=== PATIENT | male | born 1950 | race Caucasian/White ===

== ENCOUNTER 2016-10-30 09:41 | Inpatient (IN) | payer OTHER, MEDICARE ==
[~2016-10-30] VITALS: Ht 177.8 cm; Wt 97.5 kg
[~2016-10-30 09:41] MED LIST: CARV25TA PO; OXYB5TAB10 PO; PANT40TA3 PO; SIMV40TA PO; TAMS0.4C4 PO; WARF-60 PO; WELLTAB39 PO
[2016-11-06] MEDS ORDERED: WARF-58 PO (12:57)
[2016-11-06] MEDS ORDERED: NITR100C4 PO (12:58)
[2016-11-06] MEDS ORDERED: COLA100C3 PO (13:01)
[2016-11-06] MEDS ORDERED: MIRA33504 PO (13:01)
[2016-11-06] MEDS ORDERED: SENN8.6C PO (13:01)
--- NOTE | 2016-11-26 10:46 | MH ---
cc: LINDSAY CAPONE M.D., RYAN R. M.D. GEIS, CAROLYN M.D. TRAFICANTE, DALE R. M.D. KHANNA, ROHIT K. M.D. SORATHIA, ABDUL J. M.D. DATE OF ADMISSION: 11/27/2016 ADMITTING DIAGNOSIS Cervical stenosis. HISTORY OF PRESENT ILLNESS This is a 66-year-old male who was seen in our office for evaluation of a spinal cord injury. He states on May 06 he was hiking and had an accident and sustained a cervical spinal cord injury. He was essentially quadriplegic per his with some limited movement in his upper extremities. He was found to have cervical spinal stenosis. He states he was seen by neurosurgery and advised to wear a cervical collar and follow-up with neurosurgery when he was home. He states that he had a prolonged rehab course secondary to complications with a DVT in his right calf and was placed on Coumadin and then developed intestinal bleed and needed repair for this. He also required his gallbladder to be removed. He states he spent 85 days in rehab. He has improved from his initial presentation and now can walk with a walker. He has numbness in his hands. He has tingling in his calves down to his feet which improves as the day goes on. He has a neurogenic bladder and has a Brink catheter in place and sees urology who is managing this. Urology is requesting that his cervical spine be addressed prior to placement of a suprapubic catheter. The patient has also been seen by Dr. Cota from hematology who recommended that he can proceed with cervical spine surgery and stop the Coumadin prior to surgery with perioperative Lovenox coverage. We also discussed the option of an IVC filter placement but the patient would like to avoid this. Dr. Cota feels that the risk for DVT progression is low in this case. The patient has also had multiple urinary tract infections which have been treated by his urologist, Dr. Kaplan. His last urinalysis was read as negative and the patient has continued to take his antibiotic to prevent recurrent infection. PAST MEDICAL HISTORY 1. Sleep apnea; he uses a CPAP machine. 2. Hyperlipidemia. 3. Hypertension. 4. Recurrent urinary tract infections. 5. Spinal cord injury. 6. Coronary artery disease with a history of coronary stents five years ago. 7. Elbow surgery on May 10, 2016. 8. Knee surgery in May 10, 2016. 9. Femur surgery May 10, 2016. 10.Gallbladder removed May 20, 2016. 11.Repair of an arterial bleed in the small intestine. 12.Histor of DVT. 13.History of depression. 14.Gastroesophageal reflux disease. MEDICATIONS Current medications: 1. Coumadin 6 mg daily. This was stopped one week prior to surgical intervention and the patient was placed on Lovenox 60 mg b.i.d. The Lovenox was stopped 48 hours prior to surgical intervention. 2. Carvedilol 25 mg b.i.d. 3. Bupropion 300 mg daily. 4. Flomax 0.4 mg daily. 5. Simvastatin 40 mg q.h.s. 6. Pantoprazole 40 mg daily. 7. Oxybutynin 5 mg daily. ALLERGIES He has no known drug allergies. FAMILY HISTORY His mother is at [id number] of a heart attack. His father is at [id number]. His sister is alive at [id number] in good health. He had another sister decreased, she was still born. SOCIAL HISTORY He is a retired [employer]. He is . He has one child. He does not smoke. He used to smoke and quit in 1984. He drinks 0-2 drinks of alcohol per month. REVIEW OF SYSTEMS CONSTITUTIONAL: Denies any fever or chills. EYES, EARS, NOSE AND THROAT: No pharyngitis, exudates or bloody drainage from his nose. CARDIOVASCULAR: Denies chest pain or palpitations. RESPIRATORY: No cough or shortness of breath. GENITOURINARY: No dysuria. Positive for urinary frequency. MUSCULOSKELETAL: Positive for joint pain. INTEGUMENTARY: No rashes or pruritus. NEUROLOGIC: No difficulty with speech or memory. GASTROINTESTINAL: No abdominal pain or diarrhea. PSYCHIATRIC: No anxiety. Positive for depression, controlled with medication. ENDOCRINE: No polyuria or polydipsia. HEMATOLOGIC: Positive for bruising tendencies related to his Coumadin use. PHYSICAL EXAMINATION HEAD: Normocephalic, atraumatic. NECK: Supple. No carotid bruits heard on auscultation. LUNGS: Clear to auscultation bilaterally. HEART: Regular rate and rhythm. Normal S1, S2. ABDOMEN: Soft, nontender. Positive bowel sounds. SKIN: No cyanosis or erythema. MUSCULOSKELETAL: He is 4/5 strength in the lower extremities. He has 4-/5 strength in the deltoid, biceps, triceps, and 3/5 strength in the hand intrinsics. He is in a wheelchair for exam but he is able to walk with a walker. NEUROLOGIC: Awake, alert and oriented. Cranial nerves II through XII appear grossly intact. Speech is fluent. Comprehension is good. Sensation in the upper extremities is decreased and in the lower extremities also. DATA REVIEW We reviewed an MRI of the cervical spine from August 22, 2016 which reveals a C5-C6 level increased T2 weighted intensity signal in the spinal cord reflective of a spinal cord injury and contusion. He has multilevel cervical stenosis from a disc osteophyte complex from C3 through C7 with the C3-C4 spinal canal reduced down to 6 mm. The spinal canal at the C4-C5 level is down to 8 mm. The spinal canal at the C5-C6 level is down to 7 mm. The canal space at C6-C7 is down to 7 mm. IMPRESSION This is a 66-year-old male who suffered a cervical spinal cord injury with quadriplegia initially after falling while he was hiking in [place] in April 2016. He was found to have a cervical spinal cord injury and multilevel stenosis, although neurosurgery recommend he follow-up with a local neurosurgeon in [place] for cervical decompression. He has had a complicated course developing a right lower extremity DVT. He was on Coumadin therapy and he sustained a subsequent GI bleed requiring embolization and extensive rehabilitation. His strength has continued to improve, although he is still very limited with decrease strength in his upper and lower extremities and he ambulates with a walker. He also has a long-term Brink catheter in place with recurrent UTIs and he is unable to self-catheterize himself and urology is contemplating a suprapubic catheter placement but would like to have the cervical stenosis addressed prior to proceeding with this. PLAN We have discussed with the patient. I recommended posterior C3-C7 decompressive laminectomy with lateral mass fixation and fusion. The procedure was explained using spine models in the office and all his questions were answered to his satisfaction and also his . No guarantees were given to the results. He understands that he has a spinal cord injury. We have discussed the risks involved with surgery which include but are not limited to bleeding, infection, muscle weakness, voice hoarseness, difficulty swallowing, heart attack, stroke, blood clots, non-fusion, scar tissue formation, as well as other complications, especially related to his current morbidities including DVT, pulmonary embolus, sepsis from his recurrent UTIs, including cardiopulmonary risk. The patient states that he understands these risks and he is requesting that we proceed and was therefore scheduled accordingly. Dictated by: Peyman Navas PA-C MD SAVANNAH Olivo/BOB /9:18 AM /10:03 AM
[2016-11-26] MEDS ORDERED: LACTCAP8 PO (10:56)
[2016-11-26] MEDS ORDERED: MULT-135 PO (10:56)
[2016-11-27] MEDS ORDERED: INSULIN HUMAN REGULAR 1,000 UNITS/10 ML VIAL SQ PRN (06:15)
[2016-11-27] MEDS ORDERED: SODIUM CHLORID 0.9% 500 ML IV SCH (06:15)
[2016-11-27] MEDS ORDERED: LACTATED RINGER'S 1000 ML IV SCH (06:15)
[2016-11-27] MEDS ORDERED: METOPROLOL TARTRATE 25 MG TAB PO PRN (06:15)
[2016-11-27] MEDS ORDERED: SODIUM CHLOR 0.9% 1000 ML INJ 1,000 ML IV SCH (06:15)
[2016-11-27] MEDS ORDERED: VANCOMYCIN 1,000 MG/NS 250 ML IV SCH ×2 (06:15)
[2016-11-27] MEDS ORDERED: DIPH1TAB36 PO (06:41)
[2016-11-27 06:49] VITALS: BP 118/75; PULSE 60; RESP 20; TEMP 97.6; O2SAT 99
[2016-11-27] MEDS ORDERED: BUPIVACAINE/EPINEPHRINE 0.5% 50 ML VIAL ONE (07:09)
[2016-11-27] MEDS ORDERED: GELFOAM SIZE 100 ONE (07:10)
--- NOTE | 2016-11-27 07:26 | RADRPT ---
EXAM DATE/TIME: 11/27/2016 06:20 [facility] COMPARISON: No previous studies available for comparison. INDICATIONS : Evaluate for pneumonia, pneumothorax or communicable disease. Pre-op chest for cervical spine surgery MEDICAL HISTORY : None. SURGICAL HISTORY : cervical spine ENCOUNTER: Initial ACUITY: 1 day PAIN SCORE: 0/10 LOCATION: Bilateral chest FINDINGS: The heart is normal. The pulmonary vascular pattern is normal. The lungs are clear. Degenerative cheatham ges and scoliosis of the thoracic spine are noted. CONCLUSION: 1. No acute cardiopulmonary disease. 2. Degenerative changes and scoliosis of the thoracic spine. Dale Padilla MD on November 27, 2016 at 7:24 Board Certified Radiologist. This report was verified electronically.
[2016-11-27] MEDS ORDERED: FAMOTIDINE 20 MG/2 ML VIAL ONE (07:47)
[2016-11-27] MEDS ORDERED: MIDAZOLAM HCL 2 MG/2 ML VIAL ONE (07:47)
[2016-11-27] MEDS ORDERED: KETAMINE HCL 500 MG/5 ML VIAL ONE (08:01)
[2016-11-27] MEDS: THROMBIN (TOPICAL) 5,000 UNIT VIAL ONE ×2 (09:30→10:31)
[2016-11-27] MEDS: VANCOMYCIN HCL 1000 MG VIAL ONE ×2 (09:30→11:32)
[2016-11-27] MEDS ORDERED: LEVOFLOXACIN 500 MG PREMIX INJ 100 ML IV ONE (09:46)
[2016-11-27] MEDS ORDERED: PHENYLEPH/NS 1000 MCG/10 ML SYR IV ONE (10:52)
[2016-11-27] MEDS ORDERED: LACTATED RINGER'S 1000 ML INJ 4,000 ML IV ONE (10:52)
[2016-11-27] MEDS ORDERED: ONDANSETRON HCL 4 MG/2 ML VIAL IV PUSH ONE (10:52)
[2016-11-27] MEDS ORDERED: ePHEDrine/NS 25 MG/5 ML SYR IV ONE (10:52)
[2016-11-27] MEDS ORDERED: PROPOFOL 200 MG/20 ML AMP IV ONE (10:52)
[2016-11-27] MEDS ORDERED: ACETAMINOPHEN 1000 MG/100 ML VIAL IV ONE (11:53)
[2016-11-27] MEDS ORDERED: BISACODYL 10 MG SUPP PR PRN (12:45)
[2016-11-27] MEDS ORDERED: CALCIUM GLUCONATE INJ 1 GM in SODIUM CHLORIDE 0.9% INJ 100 ML IV PRN (12:45)
[2016-11-27] MEDS ORDERED: ACETAMINOPHEN 325 MG TAB PO PRN (12:45)
[2016-11-27] MEDS ORDERED: PROMETHAZINE INJ 25 MG/ML VIAL IM PRN (12:45)
[2016-11-27] MEDS ORDERED: RESP: ALBUTEROL 2.5 MG/3 ML NEB (PRN) NEB (12:45)
[2016-11-27] MEDS ORDERED: POTASSIUM CHLOR 20 MEQ PREMIX 100 ML IV PRN (12:45)
[2016-11-27] MEDS ORDERED: DIPHENHYDRAMINE ACETAMINOPHEN PO PRN (12:45)
[2016-11-27] MEDS ORDERED: ZOLPIDEM TARTRATE 5 MG TAB PO PRN (12:45)
[2016-11-27] MEDS ORDERED: SODIUM CHLORIDE 0.9% FLUSH 5 ML FLUSH IVF PRN (12:45)
[2016-11-27] MEDS ORDERED: ONDANSETRON HCL 4 MG/2 ML VIAL IV PRN (12:45)
[2016-11-27] MEDS ORDERED: ALUMINUM/MAGNESIUM/SIMETH 30 ML CUP PO PRN (12:45)
[2016-11-27] MEDS ORDERED: MAGNESIUM HYDROXIDE SUSP 30 ML CUP PO PRN (12:45)
[2016-11-27] MEDS ORDERED: ACETAMINOPHEN/HYDROcodone 325 MG/10 MG TAB PO PRN (12:45)
[2016-11-27] MEDS ORDERED: MAGNESIUM SULFATE INJ 2 GM in SODIUM CHLORIDE 0.9% INJ 100 ML IV PRN (12:45)
[2016-11-27] MEDS ORDERED: MENTHOL LOZENGE SUCK-ON PRN (12:45)
[2016-11-27] MEDS ORDERED: MORPHINE SULFATE 4 MG/ML INJ IV PRN (12:45)
[2016-11-27] MEDS ORDERED: cloNIDine HCL 0.1 MG TAB PO PRN (12:45)
[2016-11-27] MEDS ORDERED: DO NOT ADM ANY ANTICOAGULANT DRUGS XX PRN (12:52)
--- NOTE | 2016-11-27 12:52 | PD.OP ---
cc: Lily Lund MD; Milagros Hammer MD; Jarek Redd MD; Suzie Cota MD; Carlos Kaplan MD Operative Report Date of Surgery: Nov 27, 2016 Preoperative Diagnosis: Cervical C3-7 spinal stenosis with cord compression and history of spinal cord injury with quadriparesis Postoperative Diagnosis: Same Procedure: Posterolateral cervical C3, C4, C5, C6 and C7 fusion; C3-7 decompressive laminectomy; C3-7 lateral mass segmental fixation; microsurgical technique Anesthesia: Gen. endotracheal by Kim Koehler Surgeon: Blade Allen M.D. Brokerage Branch Manager(s): Soni Cronin Operation and Findings: Following administration of general endotracheal anesthesia with the neck maintained in neutral position in a [place] J collar, patient had a Brink catheter in place with sequential compression devices on the left leg given history of right leg DVT. A gram of vancomycin, 500 mg of Levaquin and 10 mg of Decadron was administered intravenously. He was then turned on a prone position on a Christian table and the head secured in a horseshoe headrest and all pressure points adequately padded. Posterior cervical region was then shaved and prepped with Betadine solution and ChloraPrep. Sterile draping undertaken along with Ioban and a midline incision extending from the C3 to the C7 was then made after infiltrating the skin was 0.5% Marcaine with epinephrine solution. Intraoperative fluoroscopy used for level confirmation. Retractors were used for exposure after the fascia incised and the muscular attachments to the spinous process and lamina along with the facets detached from C3 to C7 levels bilaterally. Further dissection was undertaken using microtechnique with microscope magnification. I drilled out the lamina at the junction of the facets from C4 to C6 levels bilaterally and an en bloc laminectomy undertaken for decompression the spinal canal. The inferior half of the C3 lamina and the superior half of the C7 lamina along with the hypertrophied ligamentum flavum was also resected with a Kerrison spinal canal decompressed further. The ligamentum flavum were also resected with Kerrisons. The facets on both sides decorticated with a curette. Subsequently lateral mass fixation undertaken with the [employer] screws with entry point of the midportion of the facet on both sides from C3 to C7 levels. The screw trajectory was lateral and superiorly guided with fluoroscopy also. Screws were then connected with a natividad and locked in place with caps. The construct appeared to be secure this point in AP and lateral fossae confirmed good placement and alignment. The decorticated facets were then packed from C3 to C7 levels with the local autograft morselized bone along with the demineralized bone matrix for posterolateral fusion. The area was then copiously irrigated with antibody solution laminectomy edges and hemostasis achieved with bone wax along with Gelfoam and thrombin. Retractors removed and the muscle and fascia using 2-0 Vicryl interrupted sutures and 3-0 Vicryl subcuticular stitch also placed in an interrupted fashion and final skin closure was with cristiane. A sterile dressing was applied and the neck immobilized in a [place] J collar. He was then turned in supine position and extubated and taken to recovery room. There were no intraoperative complications and all sponge and needle count was correct at the end the procedure. Estimated blood loss about 300 cc. Patient did undergo intraoperative neurologic monitoring which remained stable throughout surgery. Blade Allen MD Nov 27, 2016 12:52
[2016-11-27 12:53] VITALS: O2SAT 99
[2016-11-27] MEDS ORDERED: *morphine SULFATE 8 MG/ML PERIprocedure ONLY ONE ×2 (13:05→13:37)
[2016-11-27] MEDS ORDERED: fentaNYL CITRATE 250 MCG/5 ML AMP ONE (13:08)
[2016-11-27 14:04] LABS: AUTOMATED NEUTROPHIL # 2.6 TH/MM3 (1.8-7.7); BASOPHIL % 0.6 % (0.0-2.0); EOSINOPHIL % 0.7 % (0.0-4.0); HEMATOCRIT 32.8 % (39.0-51.0); HEMO FLAGS DIFF FINAL; LYMPH % 14.9 % (9.0-44.0); LYMPHOCYTE # 0.5 TH/MM3 (1.0-4.8); MEAN CELL VOLUME 88.8 FL (80.0-100.0); MEAN CORPUSCULAR HEMOGLOBIN 30.4 PG (27.0-34.0); MEAN CORPUSCULAR HGB CONC 34.3 % (32.0-36.0); MONO % 2.4 % (0.0-8.0); NEUT % 81.4 % (16.0-70.0); PLATELET COUNT 100 TH/MM3 (150-450); RED BLOOD COUNT 3.69 MIL/MM3 (4.50-5.90); RED CELL DISTRIBUTION WIDTH 14.4 % (11.6-17.2); WHITE BLOOD COUNT 3.2 TH/MM3 (4.0-11.0)
[2016-11-27 14:14] VITALS: O2SAT 97
[2016-11-27] MEDS: NS + KCL 20 MEQ INJ 1,000 ML IV SCH ×2 (14:20→22:01)
[2016-11-27 14:30] LABS: BICARBONATE 26.3 MEQ/L (21.0-32.0); POTASSIUM 4.1 MEQ/L (3.5-5.1)
--- NOTE | 2016-11-27 14:39 | RADRPT ---
EXAM DATE/TIME: 11/27/2016 08:46 [facility] COMPARISON: No previous studies available for comparison. INDICATIONS: Posterior cervical fusion C3 to C7 with screws and rods., MEDICAL HISTORY: Hypertension. Hypercholesterolemia. Myocardial infarction. CAD. Sleep SURGICAL HISTORY: Coronary artery stent. Elbow, knee, femur surgery. ENCOUNTER: Initial ACUITY: 2 days PAIN SCORE: Non-responsive. LOCATION: Cervical spine. FINDINGS/ CONCLUSION: Five views submitted for interpretation. There are bilateral posterior rods from C3 to C7. There ar e three pedicular screws on the right, four on the left. No visible complication. There appears to be good alignment. Wayne Gordon MD on November 27, 2016 at 14:31 Board Certified Radiologist. This report was verified electronically.
[2016-11-27] MEDS ORDERED: ceFAZolin INJ 1,000 MG VIAL ONE (15:01)
[2016-11-27] MEDS ORDERED: SODIUM CHLORIDE 0.9% INJ 100 ML ONE (15:02)
[2016-11-27] MEDS ORDERED: *ENALAPRILAT 1.25 MG/ML VIAL PERIprocedural Use ONLY ONE (15:27)
[2016-11-27] MEDS: DEXAMETHASONE SOD PHOS 4 MG/ML VIAL IV SCH ×2 (15:35→22:01)
[2016-11-27 16:15] VITALS: BP 155/88; PULSE 69; RESP 17; TEMP 96.5; O2SAT 99
[2016-11-27] MEDS: ACETAMINOPHEN/HYDROcodone 325 MG/10 MG TAB PO PRN (18:07)
[2016-11-27 20:00] VITALS: BP 156/80; PULSE 89; RESP 18; TEMP 96.7; O2SAT 98
[2016-11-27] MEDS: SODIUM CHLORIDE 0.9% FLUSH 5 ML FLUSH IVF SCH (21:00)
--- NOTE | 2016-11-27 21:19 | PD.CONS ---
HPI Service [facility] Consult Requested By Dr Allen Reason for Consult Medical management Primary Care Physician Blade Allen MD Diagnoses: History of Present Illness This is a 66-year-old male with extensive past medical history as detailed below who was seen by Dr. for spinal cord injury. The patient reportedly had a an accident while he was hiking and sustained a cervical spinal cord injury. The patient became quadriplegic with limited movement in his upper extremities. The patient was then diagnosed with cervical spinal stenosis. He was seen by neurosurgery and advised to wear a cervical collar and follow-up with neurosurgery. Patient states he had a prolonged rehabilitation course secondary to complications with a DVT in his right calf and was placed on Coumadin and then developed intestinal bleed which had repair for this. Patient also had cholecystectomy. The patient states that he spent 85 days in rehabilitation. Patient states he has had some improvement from his initial presentation since he cannot walk with a walker but complained of numbness in his hands. She also complained of some tingling in his feet which in improved test the day goes on. Patient also has neurogenic bladder and has a Brink catheter in place and is followed by urology. Urology is requesting that his cervical spine [place] prior to placement of a suprapubic catheter. Patient has been followed by Dr. Baez from hematology for his DVT who recommended that the patient could proceed with a cervical spine surgery and recommended to stop the Coumadin prior to surgery with some perioperative Lovenox coverage. As per records the optional patient lives in [place] was also discussed but the patient would like to avoid this. As per records Dr. Courtney. [place] that the risk of DVT progression is low in this case. Patient also has had some multiple histories of UTIs which have been treated by his urologist Dr. douglas. He is on antibiotic to prevent recurrent infection. The patient is status post elective postlaminectomy of the posterior C3 to 7 laminectomies, fusion, symmetric bilateral mouth fixation, jake and autograft with normal monitoring. Review of Systems Other As per history of present illness, other systems reviewed by me and negative. Past Family Social History Allergies: Coded Allergies: *MDRO Multi-Drug Resistant Organism (Verified Adverse Reaction, Unknown, ) MRSA (urine) - 07/20/16, 08/17/16 Past Medical History 1. Obstructive sleep apnea, uses CPAP machine 2. Hyperlipidemia. 3. Hypertension. 4. Spinal cord injury. 5. Recurrent urinary tract infections. 6. CAD status post stents placement 5 years ago. 7. History of DVT. 8. History of depression 9. GERD Past Surgical History 1. Coronary stents 5 years ago 2. Elbow surgery on 05/10/16. 3. Knee surgery in May 10 4. Femur surgery May 10 5. Gallbladder removed 05/20/16 6. Repair of arterial bleed in the small intestine. Reported Medications 1. Coumadin 6 minutes by mouth daily. Stopped one week prior to surgical intervention and the patient placed on Lovenox 60 minutes twice a day. Lovenox discontinued 48 hours prior to surgical intervention. 2. Carvedilol 25 mg by mouth twice a day 3. Bupropion 300 mg by mouth daily 4. Flomax 0.4 minutes by mouth daily. 5. Simvastatin 40 mg daily at bedtime. 6. Pantoprazole 40 mg by mouth daily. 7. Oxybutynin 5 mg by mouth daily Active Ordered Medications Current Medications Medications (Trade) Dose Ordered Sig/Shukri Route Start Time Stop Time Status Last Admin (Wellbutrin Sr) 150 mg BID PO 11/27/16 21:00 (Coreg) 25 mg BID PO 11/27/16 21:00 (Lactinex) 1 tab DAILYAC PO 11/28/16 08:00 (Theragran) 1 tab DAILY PO 11/28/16 09:00 (Macrobid) 100 mg DAILY PO 11/28/16 09:00 (Ditropan) 5 mg DAILY PO 11/28/16 09:00 (Protonix) 40 mg DAILY PO 11/28/16 09:00 (Miralax) 17 gm DAILY PO 11/28/16 09:00 (Flomax) 0.4 mg HS PO 11/27/16 21:00 (Senokot) 8.6 mg HS PO 11/27/16 21:00 Pravastatin Sodium 80 mg 80 mg HS PO 11/27/16 21:00 (NS + KCl 20 Meq Inj) 1,000 ml @ 100 mls/hr Q10H IV 11/27/16 12:39 11/28/16 12:38 11/27/16 14:20 (NS Flush) 2 ml UNSCH PRN IVF 11/27/16 12:45 IV Flush 2 ml 2 ml BID IVF 11/27/16 21:00 (Ancef Inj/NS Inj) 100 ml @ 200 mls/hr Q8H IV 11/27/16 16:00 11/28/16 08:29 (Lovenox Inj) 30 mg Q12H SQ 11/28/16 09:00 (Dulcolax Supp) 10 mg DAILY PRN VT 11/27/16 12:45 (Colace) 100 mg BID PO 11/27/16 21:00 (Milk Of Magnesia Liq) 30 ml DAILY PRN PO 11/27/16 12:45 (Mag-Al Plus Susp Liq) 30 ml Q6H PRN PO 11/27/16 12:45 (Zofran Inj) 4 mg Q6H PRN IV 11/27/16 12:45 Promethazine HCl 25 mg 25 mg Q4H PRN IM 11/27/16 12:45 Calcium Gluconate 1 gm/Sodium Chloride 110 ml @ 110 mls/hr UNSCH PRN IV 11/27/16 12:45 Potassium Chloride 100 ml @ 50 mls/hr UNSCH PRN IV 11/27/16 12:45 (Magnesium Sulfate Inj/NS Inj) 104 ml @ 100 mls/hr UNSCH PRN IV 11/27/16 12:45 ([place] 10-325 Mg) 1 tab Q4H PRN PO 11/27/16 12:45 11/27/16 18:07 ([place] 10-325 Mg) 2 tab Q4H PRN PO 11/27/16 12:45 (Morphine Inj) 4 mg Q2H PRN IV 11/27/16 12:45 (Flexeril) 10 mg Q8H PRN PO 11/27/16 12:45 (Decadron Inj) 4 mg Q6H IV 11/27/16 16:00 11/28/16 10:01 11/27/16 15:35 (Catapres) 0.1 mg Q6H PRN PO 11/27/16 12:45 (Tylenol) 650 mg Q4H PRN PO 11/27/16 12:45 (Hollister Lore) 1 lozenge UNSCH PRN SUCK-ON 11/27/16 12:45 (Ambien) 5 mg HS PRN PO 11/27/16 12:45 Miscellaneous Information ALL NURSING DEPARTME... [facility] PRN XX 11/27/16 12:52 11/28/16 12:51 Family History Patient's mother is of 89 years old for heart attack. The patient's father is at 67 years old. His sister is alive at 77 years old in good health. Patient had another sister but was a stillborn. Social History The patient is a former smoker. He quit in 1984. He drinks 2 drinks of alcohol per month.. The patient is . Has one child. 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 Physical Exam Vital Signs Vital Signs Date Time Temp Pulse Resp B/P Pulse Ox O2 Delivery O2 Flow Rate FiO2 11/27/16 16:15 96.5 69 17 155/88 99 11/27/16 15:30 62 16 154/87 96 Nasal Cannula 2 11/27/16 15:15 62 16 150/90 97 Nasal Cannula 2 11/27/16 15:00 66 16 163/90 97 Nasal Cannula 2 11/27/16 14:45 58 16 150/89 98 Nasal Cannula 2 11/27/16 14:30 54 16 157/90 97 Nasal Cannula 2 11/27/16 14:15 54 16 174/98 97 Nasal Cannula 2 11/27/16 14:14 97 Mask 6 11/27/16 14:00 50 12 164/90 99 Mechanical Ventilator 60 11/27/16 13:45 50 12 169/96 99 Mechanical Ventilator 60 11/27/16 13:30 54 10 138/71 99 Mechanical Ventilator 60 11/27/16 13:15 52 8 128/78 99 Mechanical Ventilator 60 11/27/16 13:00 50 137/77 99 Mechanical Ventilator 60 11/27/16 12:53 99 60 11/27/16 12:50 96.0 52 125/73 99 Mechanical Ventilator 60 11/27/16 06:49 97.6 60 20 118/75 99 Physical Exam GENERAL: This is a well-nourished, well-developed patient, in no apparent distress. SKIN: No rashes, ecchymoses or lesions. Cool and dry. HEAD: Atraumatic. Normocephalic. No temporal or scalp tenderness. EYES: Pupils equal round and reactive. Extraocular motions intact. No scleral icterus. No injection or drainage. ENT: Nose without bleeding, purulent drainage or septal hematoma. Throat without erythema, tonsillar hypertrophy or exudate. Uvula midline. Airway patent. NECK: Trachea midline. No JVD or lymphadenopathy. Supple, nontender, no meningeal signs. CARDIOVASCULAR: Regular rate and rhythm without murmurs, gallops, or rubs. RESPIRATORY: Clear to auscultation. Breath sounds equal bilaterally. No wheezes , rales, or rhonchi. GASTROINTESTINAL: Abdomen soft, non-tender, nondistended. No hepato-splenomegaly , or palpable masses. No guarding. MUSCULOSKELETAL: Extremities without clubbing, cyanosis, or edema. No joint tenderness, effusion, or edema noted. No calf tenderness. Negative Homans sign bilaterally. NEUROLOGICAL: Awake and alert. Cranial nerves II through XII intact. Motor and sensory grossly within normal limits. Five out of 5 muscle strength in all muscle groups. Normal speech. Laboratory Laboratory Tests Test 11/27/16 11/27/16 06:40 13:40 Blood Type A POSITIVE Antibody Screen NEGATIVE Blood Bank Comment White Blood Count 3.2 Red Blood Count 3.69 Hemoglobin 11.2 Hematocrit 32.8 Mean Corpuscular Volume 88.8 Mean Corpuscular Hemoglobin 30.4 Mean Corpuscular Hemoglobin 34.3 Concent Red Cell Distribution Width 14.4 Platelet Count 100 Mean Platelet Volume 7.7 Neutrophils (%) (Auto) 81.4 Lymphocytes (%) (Auto) 14.9 Monocytes (%) (Auto) 2.4 Eosinophils (%) (Auto) 0.7 Basophils (%) (Auto) 0.6 Neutrophils # (Auto) 2.6 Lymphocytes # (Auto) 0.5 Monocytes # (Auto) 0.1 Eosinophils # (Auto) 0.0 Basophils # (Auto) 0.0 CBC Comment DIFF FINAL Differential Comment Sodium Level 141 Potassium Level 4.1 Chloride Level 104 Carbon Dioxide Level 26.3 Anion Gap 11 Blood Urea Nitrogen 13 Creatinine 0.71 Estimat Glomerular Filtration 111 Rate Random Glucose 118 Calcium Level 8.2 Result Diagram: 11/27/16 1340 11/27/16 1340 Imaging Last Impressions Chest X-Ray 11/27/16 0614 Signed Impressions: Service Date/Time: Sunday, November 27, 2016 06:20 - CONCLUSION: 1. No acute cardiopulmonary disease. 2. Degenerative changes and scoliosis of the thoracic spine. Dale Padilla MD Cervical Spine X-Ray 11/27/16 0000 Signed Impressions: Service Date/Time: Sunday, November 27, 2016 08:46 - CONCLUSION: Five views submitted for interpretation. There are bilateral posterior rods from C3 to C7. There are three pedicular screws on the right, four on the left. No visible complication. There appears to be good alignment. Wayne Gordon MD Reviewed by me. Assessment and Plan Problem List: (1) Degenerative cervical spinal stenosis ICD Code: M48.02 Status: Acute Plan: Status post posterior C3-7 laminectomies, fusion, segmental rectal mass fixation. Management as per neurosurgery. Patient currently on pain control with [place] and morphine IV. On dexamethasone IV. (2) Sleep apnea ICD Code: G47.30 Status: Acute Plan: Continue CPAP. (3) Hypertension ICD Code: I10 Status: Acute Plan: Continue home antihypertensive medications. The patient currently on carvedilol, clonidine when necessary for systolic blood pressure more than 170 (4) Hyperlipidemia ICD Code: E78.5 Status: Acute Plan: Continue statin (5) BPH (benign prostatic hypertrophy) ICD Code: N40.0 Status: Acute Plan: Continue tamsulosin (6) H/O deep venous thrombosis ICD Code: Z86.718 Status: Acute Plan: Patient currently on Lovenox 30 mg subcutaneous every 12 hours. (7) Depression ICD Code: F32.9 Status: Acute Plan: Seems stable, continue bupropion Assessment and Plan GI prophylaxis: PPI DVT prophylaxis: SCDs, and Lovenox therapeutic dose. Problem Qualifiers (1) Hypertension: Qualified Code: I10 - Essential hypertension (2) Depression: Qualified Code: F32.9 - Depression, unspecified depression type Willian Shetty MD Nov 27, 2016 21:18
[2016-11-27] MEDS: DOCUSATE SODIUM 100 MG CAP PO SCH (21:41)
[2016-11-27] MEDS: buPROPion HCL 150 MG SUSTAINED RELEASE TAB PO SCH (21:42)
[2016-11-27] MEDS: PRAVASTATIN SOD 80 MG TAB PO SCH (21:42)
[2016-11-27] MEDS: SENNOSIDES 8.6 MG TAB PO SCH (21:42)
[2016-11-27] MEDS: CARVEDILOL 12.5 MG TAB PO SCH (21:42)
[2016-11-27] MEDS: TAMSULOSIN HCL 0.4 MG CAP PO SCH (21:42)
[2016-11-28] VITALS (7 sets, daily range): BP systolic 136–145; BP diastolic 70–79; PULSE 75–93; RESP 16–18; TEMP 97.1–98; O2SAT 93–98
[2016-11-28] MEDS: CYCLOBENZAPRINE HCL 10 MG TAB PO PRN ×2 (00:16→12:23)
[2016-11-28] MEDS: ACETAMINOPHEN/HYDROcodone 325 MG/10 MG TAB PO PRN (00:17)
[2016-11-28] MEDS: DEXAMETHASONE SOD PHOS 4 MG/ML VIAL IV SCH ×2 (04:59→09:04)
[2016-11-28 07:06] LABS: MEAN CELL VOLUME 88.9 FL (80.0-100.0); MEAN CORPUSCULAR HEMOGLOBIN 30.8 PG (27.0-34.0); MEAN CORPUSCULAR HGB CONC 34.7 % (32.0-36.0); PLATELET COUNT 136 TH/MM3 (150-450); RED CELL DISTRIBUTION WIDTH 14.3 % (11.6-17.2); REVIEW FLAG FINAL
[2016-11-28] MEDS ORDERED: DOCUSATE SODIUM 100 MG CAP PO SCH (09:00)
[2016-11-28] MEDS: NITROFURANTOIN MONOHYD MACROCR 100 MG CAP PO SCH (09:01)
[2016-11-28] MEDS: MULTIVITAMIN TAB PO SCH (09:02)
[2016-11-28] MEDS: CARVEDILOL 12.5 MG TAB PO SCH ×2 (09:02→20:22)
[2016-11-28] MEDS: PANTOPRAZOLE SOD 40 MG DELAYED RELEASE TAB PO SCH (09:02)
[2016-11-28] MEDS: OXYBUTYNIN CHLORIDE 5 MG TAB PO SCH (09:03)
[2016-11-28] MEDS: buPROPion HCL 150 MG SUSTAINED RELEASE TAB PO SCH ×2 (09:03→20:22)
[2016-11-28] MEDS: DOCUSATE SODIUM 100 MG CAP PO SCH ×2 (09:03→20:22)
[2016-11-28] MEDS: LACTOBACILLUS ACIDOPHILUS TAB PO SCH (09:03)
[2016-11-28] MEDS: ENOXAPARIN SODIUM 30 MG/0.3 ML SYRINGE SQ SCH ×2 (09:04→20:23)
[2016-11-28] MEDS: NS + KCL 20 MEQ INJ 1,000 ML IV SCH (09:13)
[2016-11-28] MEDS: POLYETHYLENE GLYCOL 17 GM PKG PO SCH (09:13)
[2016-11-28] MEDS: SODIUM CHLORIDE 0.9% FLUSH 5 ML FLUSH IVF SCH ×2 (09:22→20:21)
--- NOTE | 2016-11-28 09:43 | HHI.NSPN ---
(Peyman Navas) History Chief Complaint: Incisional discomfort s/p multilevel cervical decompression and fusion (Peyman Navas) Interval History 11/28/16: Pt underwent C3, C4, C5, C6, and C7 decompressive laminectomy with posterolateral fusion and lateral mass fixation on 11/27/16. He states he overall is feeling well. He has neck pain and states the [place] didn't seem to help much. He has had Percocet in the past and did good with this. He denies any radiculopathy in UEs. Paresthesias in UEs and body improved. (Peyman Navas) Review of Systems General: Negative for: fever, chills, insomnia Respiratory: Negative for: shortness of breath, cough, sputum Cardiovascular: Negative for: chest pain Gastrointestinal: Negative for: nausea, vomitting, diarrhea, constipation ( Peyman Navas) Exam Results Vital Signs Date Time Temp Pulse Resp B/P Pulse Ox O2 Delivery O2 Flow Rate FiO2 11/28/16 08:00 97.7 82 16 144/73 98 11/27/16 15:30 Nasal Cannula 2 11/27/16 14:00 60 Intake and Output 11/27/16 11/27/16 11/28/16 08:00 16:00 00:00 Intake Total 100 ml 720 ml Output Total 225 ml 600 ml Balance -125 ml 120 ml (Peyman Navas) Physical Examination Resp: CTA bilaterally Heart: NSR no murmurs Abd: Soft positive bs Skin: Incision clean and dry. No signs of infection. New bandage placed. Muscle: Moves all 4 extremities with improving strength. Neuro: Pt awake and alert. Follows commands well. Speech clear and appropriate. (Peyman Navas) Lab, Micro, Other Results Laboratory Tests Test 11/27/16 11/28/16 13:40 06:35 White Blood Count 3.2 TH/MM3 8.0 TH/MM3 Red Blood Count 3.69 MIL/MM3 3.60 MIL/MM3 Hemoglobin 11.2 GM/DL 11.1 GM/DL Hematocrit 32.8 % 32.0 % Mean Corpuscular Volume 88.8 FL 88.9 FL Mean Corpuscular Hemoglobin 30.4 PG 30.8 PG Mean Corpuscular Hemoglobin 34.3 % 34.7 % Concent Red Cell Distribution Width 14.4 % 14.3 % Platelet Count 100 TH/MM3 136 TH/MM3 Mean Platelet Volume 7.7 FL 8.1 FL Neutrophils (%) (Auto) 81.4 % Lymphocytes (%) (Auto) 14.9 % Monocytes (%) (Auto) 2.4 % Eosinophils (%) (Auto) 0.7 % Basophils (%) (Auto) 0.6 % Neutrophils # (Auto) 2.6 TH/MM3 Lymphocytes # (Auto) 0.5 TH/MM3 Monocytes # (Auto) 0.1 TH/MM3 Eosinophils # (Auto) 0.0 TH/MM3 Basophils # (Auto) 0.0 TH/MM3 CBC Comment DIFF FINAL Differential Comment Sodium Level 141 MEQ/L Potassium Level 4.1 MEQ/L Chloride Level 104 MEQ/L Carbon Dioxide Level 26.3 MEQ/L Anion Gap 11 MEQ/L Blood Urea Nitrogen 13 MG/DL Creatinine 0.71 MG/DL Estimat Glomerular Filtration 111 ML/MIN Rate Random Glucose 118 MG/DL Calcium Level 8.2 MG/DL 11/27/16 11/27/16 11/28/16 15:00 23:00 07:00 Intake Total 100 ml 720 ml 360 ml Output Total 225 ml 600 ml 800 ml Balance -125 ml 120 ml -440 ml Intake Oral 720 ml 360 ml IV Total 100 ml Output Urine Total 225 ml 600 ml 800 ml # Bowel Movements 0 0 (Peyman Navas) Medical Decision Making Impression and Plan A: 66 y/o M s/p C3, C4, C5, C6 and C7 decompressive laminectomy with posterolateral fusion and C3-C7 lateral mass fixation P: Change to Percocet PT Rehab placement when pain controlled in next 1-2 days. (Peyman Navas) Attending Statement The exam, history, and the medical decision-making described in the above note were completed with the assistance of the mid-level provider. I reviewed and agree with the findings presented. I attest that I had a [id number] encounter with the patient on the same day, and personally performed and documented my assessment and findings in the medical record. Doing well postop day #1 with reported improvement in neurologic symptoms. Patient and his are very pleased with the early results and his progress. He will need acute inpatient rehabilitation. (Blade Allen MD) Peyman Navas Nov 28, 2016 09:43 Blade Allen MD Nov 28, 2016 18:30
[2016-11-28] MEDS: oxyCODONE/ACETAMINOPHEN 10 MG/325 MG TAB PO PRN ×2 (12:23→17:42)
--- NOTE | 2016-11-28 16:41 | HHI.PR ---
Subjective Remarks very motivated with physical therapy states back discomfort and tingling of hands much improved since surgery have a very supportive at bedside Objective Vitals Vital Signs Date Time Temp Pulse Resp B/P Pulse Ox O2 Delivery O2 Flow Rate FiO2 11/28/16 15:43 97.8 93 17 139/74 93 11/28/16 12:00 97.8 75 17 145/70 96 11/28/16 11:44 96 11/28/16 08:00 97.7 82 16 144/73 98 11/28/16 04:18 97.1 88 17 145/75 95 11/28/16 00:25 98.0 87 18 136/79 96 11/27/16 20:00 96.7 89 18 156/80 98 I/O 11/27/16 11/27/16 11/27/16 11/28/16 11/28/16 11/28/16 07:00 15:00 23:00 07:00 15:00 23:00 Intake Total 100 ml 720 ml 360 ml 240 ml Output Total 225 ml 600 ml 800 ml 1150 ml Balance -125 ml 120 ml -440 ml -910 ml Intake Oral 720 ml 360 ml 240 ml IV Total 100 ml Output Urine Total 225 ml 600 ml 800 ml 1150 ml # Bowel Movements 0 0 0 Result Diagram: 11/28/16 0635 11/27/16 1340 Imaging Last Impressions Chest X-Ray 11/27/16 0614 Signed Impressions: Service Date/Time: Sunday, November 27, 2016 06:20 - CONCLUSION: 1. No acute cardiopulmonary disease. 2. Degenerative changes and scoliosis of the thoracic spine. Dale Padilla MD Cervical Spine X-Ray 11/27/16 0000 Signed Impressions: Service Date/Time: Sunday, November 27, 2016 08:46 - CONCLUSION: Five views submitted for interpretation. There are bilateral posterior rods from C3 to C7. There are three pedicular screws on the right, four on the left. No visible complication. There appears to be good alignment. Wayne Gordon MD Objective Remarks awake and alert, oriented x 3, speech clear crvical collar in place lungs clear regular rhythm abdomen soft, nontender urias in place extremities no edema, right calf slightly bigger than- no calf tenderness grossly sensory intact ambulated with a walker from bed to chair Procedures 11/27- 3- C7 laminectomy Urinary Catheter: Yes Assessment to: Continue [place] insert reason: Surgical/Invasive Proced Date of Insertion: Nov 27, 2016 A/P Problem List: (1) Degenerative cervical spinal stenosis ICD Code: M48.02 Status: Acute (2) Sleep apnea ICD Code: G47.30 Status: Acute (3) Hypertension ICD Code: I10 Status: Acute (4) Hyperlipidemia ICD Code: E78.5 Status: Acute (5) BPH (benign prostatic hypertrophy) ICD Code: N40.0 Status: Acute (6) H/O deep venous thrombosis ICD Code: Z86.718 Status: Acute (7) Depression ICD Code: F32.9 Status: Acute Assessment and Plan (1) Degenerative cervical spinal stenosis ICD Code: M48.02 Status: Acute Plan: Status post posterior C3-7 laminectomies, fusion, segmental rectal mass fixation. 11/27 Management as per neurosurgery. Patient currently on pain control with [place] and morphine IV. (2) Sleep apnea ICD Code: G47.30 Status: Acute Plan: Continue CPAP.at hs (3) Hypertension ICD Code: I10 Status: Acute Plan: Continue home antihypertensive medications. The patient currently on carvedilol, clonidine when necessary for systolic blood pressure more than 170 (4) Hyperlipidemia ICD Code: E78.5 Status: Acute Plan: Continue statin (5) BPH (benign prostatic hypertrophy) ICD Code: N40.0 Status: Acute Plan: Continue tamsulosin, currently urias in place post op (6) H/O deep venous thrombosis, right ICD Code: Z86.718 Status: chronic Plan: Patient currently on Lovenox 30 mg subcutaneous every 12 hours. (7) Depression ICD Code: F32.9 Status: Acute Plan: Seems stable, continue bupropion Assessment and Plan GI prophylaxis: PPI DVT prophylaxis: SCDs, and Lovenox Problem Qualifiers (1) Hypertension: Qualified Code: I10 - Essential hypertension (2) Depression: Qualified Code: F32.9 - Depression, unspecified depression type Dylan Rocha MD Nov 28, 2016 16:41
[2016-11-28] MEDS: TAMSULOSIN HCL 0.4 MG CAP PO SCH (20:22)
[2016-11-28] MEDS: PRAVASTATIN SOD 80 MG TAB PO SCH (20:22)
[2016-11-28] MEDS: SENNOSIDES 8.6 MG TAB PO SCH (20:22)
[2016-11-29 00:28] VITALS: BP 133/67; PULSE 87; RESP 17; TEMP 97.6; O2SAT 95
[2016-11-29] MEDS: oxyCODONE/ACETAMINOPHEN 10 MG/325 MG TAB PO PRN ×3 (03:15→13:30)
[2016-11-29 04:12] VITALS: BP 138/76; PULSE 65; RESP 17; TEMP 97.6; O2SAT 96
[2016-11-29 08:00] VITALS: BP 140/78; PULSE 71; RESP 18; TEMP 97.4; O2SAT 95
[2016-11-29 08:20] VITALS: O2SAT 92
[2016-11-29] MEDS: MULTIVITAMIN TAB PO SCH (08:52)
[2016-11-29] MEDS: POLYETHYLENE GLYCOL 17 GM PKG PO SCH (08:52)
[2016-11-29] MEDS: DOCUSATE SODIUM 100 MG CAP PO SCH (08:52)
[2016-11-29] MEDS: LACTOBACILLUS ACIDOPHILUS TAB PO SCH (08:52)
[2016-11-29] MEDS: SODIUM CHLORIDE 0.9% FLUSH 5 ML FLUSH IVF SCH (08:52)
[2016-11-29] MEDS: ENOXAPARIN SODIUM 30 MG/0.3 ML SYRINGE SQ SCH (08:52)
[2016-11-29] MEDS: NITROFURANTOIN MONOHYD MACROCR 100 MG CAP PO SCH (08:53)
[2016-11-29] MEDS: buPROPion HCL 150 MG SUSTAINED RELEASE TAB PO SCH (08:53)
[2016-11-29] MEDS: PANTOPRAZOLE SOD 40 MG DELAYED RELEASE TAB PO SCH (08:53)
[2016-11-29] MEDS: CARVEDILOL 12.5 MG TAB PO SCH (08:53)
[2016-11-29] MEDS: OXYBUTYNIN CHLORIDE 5 MG TAB PO SCH (08:53)
--- NOTE | 2016-11-29 08:59 | HHI.NSPN ---
(Peyman Navas) History Chief Complaint: Incisional discomfort s/p multilevel cervical decompression and fusion (Peyman Navas) Interval History 11/28/16: Pt underwent C3, C4, C5, C6, and C7 decompressive laminectomy with posterolateral fusion and lateral mass fixation on 11/27/16. He states he overall is feeling well. He has neck pain and states the [employer] didn't seem to help much. He has had Percocet in the past and did good with this. He denies any radiculopathy in UEs. Paresthesias in UEs and body improved. 11/29/16: Pt awake and alert. States doing very well. Neck pain controlled with pain medication. No radiculopathy in UEs. Paresthesias in hands less and also less in LEs. Pt ambulated short distance with rolling walker. (Peyman Navas) Review of Systems General: Negative for: fever, chills, insomnia Respiratory: Negative for: shortness of breath, cough, sputum Cardiovascular: Negative for: chest pain Gastrointestinal: Negative for: nausea, vomitting, diarrhea, constipation ( Peyman Naavs) Exam Results Vital Signs Date Time Temp Pulse Resp B/P Pulse Ox O2 Delivery O2 Flow Rate FiO2 11/29/16 04:12 97.6 65 17 138/76 96 11/28/16 18:00 21 11/27/16 15:30 Nasal Cannula 2 Intake and Output 11/28/16 11/28/16 11/29/16 08:00 16:00 00:00 Intake Total 360 ml 240 ml 840 ml Output Total 800 ml 1150 ml 1850 ml Balance -440 ml -910 ml -1010 ml (Peyman Navas) Physical Examination Resp: CTA bilaterally Heart: NSR no murmurs Abd: Soft positive bs Skin: Incision clean and dry. No signs of infection. New bandage placed by RN this morning. Muscle: Moves all 4 extremities with improving strength 4/5 strength in UEs and LEs. Neuro: Pt awake and alert. Follows commands well. Speech clear and appropriate. (Peyman Navas) Lab, Micro, Other Results 11/28/16 11/28/16 11/29/16 15:00 23:00 07:00 Intake Total 240 ml 840 ml 360 ml Output Total 1150 ml 1850 ml 750 ml Balance -910 ml -1010 ml -390 ml Intake Oral 240 ml 840 ml 360 ml Output Urine Total 1150 ml 1850 ml 750 ml # Bowel Movements 0 0 0 (Peyman Navas) Medical Decision Making Impression and Plan A: 66 y/o M s/p C3, C4, C5, C6 and C7 decompressive laminectomy with posterolateral fusion and C3-C7 lateral mass fixation P: Continue with PT Rehab placement when bed available. (Peyman Navas) Attending Statement The exam, history, and the medical decision-making described in the above note were completed with the assistance of the mid-level provider. I reviewed and agree with the findings presented. I attest that I had a [id number] encounter with the patient on the same day, and personally performed and documented my assessment and findings in the medical record. (Blade Allen MD) Peyman Navas Nov 29, 2016 08:59 Blade Allen MD Nov 29, 2016 16:20
[2016-11-29] MEDS ORDERED: CYCL1TAB29 PO (09:13)
[2016-11-29] MEDS ORDERED: MILKSUS PO (09:13)
[2016-11-29] MEDS ORDERED: OXYC1TAB36 PO (09:13)
[2016-11-29] MEDS ORDERED: ENOX30P SQ (09:14)
--- NOTE | 2016-11-29 11:12 | HHI.PR ---
Subjective Remarks doing very well motivated with therapy tingling improved looking forward to going to rehab Objective Vitals Vital Signs Date Time Temp Pulse Resp B/P Pulse Ox O2 Delivery O2 Flow Rate FiO2 11/29/16 08:20 92 21 11/29/16 08:00 97.4 71 18 140/78 95 11/29/16 04:12 97.6 65 17 138/76 96 11/29/16 00:28 97.6 87 17 133/67 95 11/28/16 20:24 97.9 86 18 136/72 95 11/28/16 18:00 21 11/28/16 15:43 97.8 93 17 139/74 93 11/28/16 12:00 97.8 75 17 145/70 96 11/28/16 11:44 96 I/O 11/28/16 11/28/16 11/28/16 11/29/16 11/29/16 11/29/16 07:00 15:00 23:00 07:00 15:00 23:00 Intake Total 360 ml 240 ml 840 ml 360 ml Output Total 800 ml 1150 ml 1850 ml 750 ml Balance -440 ml -910 ml -1010 ml -390 ml Intake Oral 360 ml 240 ml 840 ml 360 ml Output Urine Total 800 ml 1150 ml 1850 ml 750 ml # Bowel Movements 0 0 0 0 Result Diagram: 11/28/16 0635 11/27/16 1340 Imaging Last Impressions Chest X-Ray 11/27/16 0614 Signed Impressions: Service Date/Time: Sunday, November 27, 2016 06:20 - CONCLUSION: 1. No acute cardiopulmonary disease. 2. Degenerative changes and scoliosis of the thoracic spine. Dale Padilla MD Cervical Spine X-Ray 11/27/16 0000 Signed Impressions: Service Date/Time: Sunday, November 27, 2016 08:46 - CONCLUSION: Five views submitted for interpretation. There are bilateral posterior rods from C3 to C7. There are three pedicular screws on the right, four on the left. No visible complication. There appears to be good alignment. Wayne Gordon MD Objective Remarks awake and alert, oriented x 3, speech clear cervical collar in place lungs clear regular rhythm abdomen soft, nontender urias in place extremities no edema, no calf tenderness grossly sensory intact Procedures 1/31- 3- C7 laminectomy Urinary Catheter: Yes Urias insert reason: Surgical/Invasive Proced Date of Insertion: Nov 27, 2016 A/P Problem List: (1) Degenerative cervical spinal stenosis ICD Code: M48.02 Status: Acute (2) Sleep apnea ICD Code: G47.30 Status: Acute (3) Hypertension ICD Code: I10 Status: Acute (4) Hyperlipidemia ICD Code: E78.5 Status: Acute (5) BPH (benign prostatic hypertrophy) ICD Code: N40.0 Status: Acute (6) H/O deep venous thrombosis ICD Code: Z86.718 Status: Acute (7) Depression ICD Code: F32.9 Status: Acute Assessment and Plan (1) Degenerative cervical spinal stenosis ICD Code: M48.02 Status: Acute Plan: Status post posterior C3-7 laminectomies, fusion, segmental rectal mass fixation. 11/27 Management as per neurosurgery. Patient currently on pain control with [place] (2) Sleep apnea ICD Code: G47.30 Status: Acute Plan: Continue CPAP.at (3) Hypertension ICD Code: I10 Status: Acute Plan: Continue home antihypertensive medications. The patient currently on carvedilol, (4) Hyperlipidemia ICD Code: E78.5 Status: Acute Plan: Continue statin (5) BPH (benign prostatic hypertrophy) ICD Code: N40.0 Status: Acute Plan: Continue tamsulosin, currently urias in place post op- keep urias - going with it to [place] (6) H/O deep venous thrombosis, right ICD Code: Z86.718 Status: chronic Plan: Patient currently on Lovenox 30 mg subcutaneous every 12 hours. (7) Depression ICD Code: F32.9 Status: Acute Plan: Seems stable, continue bupropion Assessment and Plan GI prophylaxis: PPI DVT prophylaxis: SCDs, and Lovenox Plan- [facility] rehab if bed available Problem Qualifiers (1) Hypertension: Qualified Code: I10 - Essential hypertension (2) Depression: Qualified Code: F32.9 - Depression, unspecified depression type Dylan Rocha MD Nov 29, 2016 11:12
[2016-11-29 12:00] VITALS: BP 138/80; PULSE 70; RESP 18; TEMP 97.2; O2SAT 95
[2016-12-05] MEDS ORDERED: COLA100C3 PO (13:19)
[2016-12-05] MEDS ORDERED: OXYC-395 PO (13:19)
[2016-12-05] MEDS ORDERED: CYCL1TAB29 PO (13:19)
[2017-04-13] MEDS ORDERED: BACT800T5 PO (19:13)
[2017-04-13] MEDS ORDERED: CEPH-460 PO (19:13)
== END 2016-11-29 14:35 | DRG 471 ==
LOC: HSDI 11-27 05:34 → N06B 11-27 16:06
PROVIDERS: ADMIT Neurological Surgery; ATTEND Neurological Surgery
PROC: 0RG2071 Fusion of 2 or more Cervical Vertebral Joints with Autologous Tissue Substitute, Posterior Approach, Posterior Column, Open Approach (ICD-10-PCS; principal; 2016-11-27 08:03)
DX: M48.02 Spinal stenosis, cervical region (principal); G82.50 Quadriplegia, unspecified; S14.159S Other incomplete lesion at unspecified level of cervical spinal cord, sequela; N31.9 Neuromuscular dysfunction of bladder, unspecified; W19.XXXS Unspecified fall, sequela; Z86.718 Personal history of other venous thrombosis and embolism; Z79.01 Long term (current) use of anticoagulants; Z87.440 Personal history of urinary (tract) infections; E78.5 Hyperlipidemia, unspecified; I10 Essential (primary) hypertension; I25.10 Atherosclerotic heart disease of native coronary artery without angina pectoris; Z95.5 Presence of coronary angioplasty implant and graft; F32.9 Major depressive disorder, single episode, unspecified; K21.9 Gastro-esophageal reflux disease without esophagitis; G47.33 Obstructive sleep apnea (adult) (pediatric); N40.0 Benign prostatic hyperplasia without lower urinary tract symptoms; Z87.891 Personal history of nicotine dependence
CPT/HCPCS: 71010; 72040; 76000; 80048; 85025; 85027; 86850; 86900; 86901; 94150; C1713; J0131; J0690; J1100; J1650; J1956; J2250; J2270; J2370; J2405; J3010; J3370; J3480; J7050; J7120; L0150

== ENCOUNTER → 2016-11-06 | Outpatient (CLI) | payer OTHER, MEDICARE ==
[~2016-11-06] MED LIST changes: +BACT800T5 PO; +CEPH-460 PO; +COLA100C3 PO; +CYCL1TAB29 PO; +DIPH1TAB36 PO; +ENOX30P SQ; +ENOX60P SQ; +LACTCAP8 PO; +MILKSUS PO; +MIRA33504 PO; +MULT-135 PO; +NITR100C4 PO; +OXYC-395 PO; +OXYC1TAB36 PO; +SENN8.6C PO; +WARF-58 PO
[2016-11-06 12:49] LABS: AUTOMATED NEUTROPHIL # 3.3 TH/MM3 (1.8-7.7); BASOPHIL % 0.9 % (0.0-2.0); EOSINOPHIL # 0.1 TH/MM3 (0-0.4); EOSINOPHIL % 1.9 % (0.0-4.0); HEMATOCRIT 36.9 % (39.0-51.0); HEMO FLAGS DIFF FINAL; LYMPH % 20.4 % (9.0-44.0); MEAN CELL VOLUME 87.6 FL (80.0-100.0); MEAN CORPUSCULAR HEMOGLOBIN 30.4 PG (27.0-34.0); MEAN CORPUSCULAR HGB CONC 34.7 % (32.0-36.0); MONO % 9.3 % (0.0-8.0); NEUT % 67.5 % (16.0-70.0); PLATELET COUNT 180 TH/MM3 (150-450); RED BLOOD COUNT 4.22 MIL/MM3 (4.50-5.90); RED CELL DISTRIBUTION WIDTH 14.7 % (11.6-17.2); WHITE BLOOD COUNT 4.9 TH/MM3 (4.0-11.0)
[2016-11-06 13:05] LABS: ALT (GPT) 26 U/L (12-78); ANION GAP 6 MEQ/L (5-15); AST (GOT) 12 U/L (15-37); BICARBONATE 27.4 MEQ/L (21.0-32.0); BLOOD UREA NITROGEN 16 MG/DL (7-18); CHLORIDE 104 MEQ/L (98-107); GLOMERULAR FILTRATION RATE 76 ML/MIN (>89); GLUCOSE,FASTING 110 MG/DL (74-99); POTASSIUM 4.3 MEQ/L (3.5-5.1); SODIUM (NA) 137 MEQ/L (136-145)
[2016-11-06 13:08] LABS: ALKALINE PHOSPHATASE 117 U/L (45-117); TOTAL BILIRUBIN ADULT 0.6 MG/DL (0.2-1.0)
[2016-11-06 13:18] LABS: APTT (PATIENT) 26.1 SEC (24.3-30.1); INTERNATIONAL NORMALIZED RATIO 1.3 RATIO; PROTHROMBIN TIME - PATIENT 14.8 SEC (9.8-11.6)
--- NOTE | 2016-11-06 14:00 | RADRPT ---
EXAM DATE/TIME: 11/06/2016 13:40 [facility] COMPARISON: No previous studies available for comparison. INDICATIONS : Evaluate for pneumonia, pneumothorax, or communicable disease. Pre op for cervical spine surgery. MEDICAL HISTORY : Hypertension. Hypercholesterolemia. Myocardial infarction. CAD. Sleep apnea. GERD. DVT. SURGICAL HISTORY : Coronary artery stent. Elbow, knee, femur surgery. ENCOUNTER: Initial ACUITY: 1 day PAIN SCORE: 0/10 LOCATION: chest FINDINGS: PA and lateral views of the chest demonstrate the lungs to be symmetrically aerated without evidence of mass, infiltrate or effusion. Heart size is normal. There is a stent overlying the region of the L AD. Surgical clips within the region of the GE junction.. Osseous structures are intact. CONCLUSION: No acute disease. Cassie Cross MD on November 06, 2016 at 13:58 Board Certified Radiologist. This report was verified electronically.
--- NOTE | 2016-11-07 22:48 | EKG ---
Date Performed: 11/06/2016 Time Performed: 12:48:11 PTAGE: 66 years EKG: SINUS BRADYCARDIA MODERATE VOLTAGE CRITERIA FOR LVH, CONSIDER NORMAL VARIANT POSSIBLE SEPTA L MYOCARDIAL INFARCTION, OF INDETERMINATE AGE ABNORMAL ECG NO PREVIOUS TRACING DOCTOR: Gildardo Ospina Interpretating Date/Time 11/07/2016 22:44:27
== END ==
LOC: CPRE 12:02
PROVIDERS: ATTEND Neurological Surgery
DX: Z01.810 Encounter for preprocedural cardiovascular examination (principal); Z01.812 Encounter for preprocedural laboratory examination; S14.105A Unspecified injury at C5 level of cervical spinal cord, initial encounter; M48.02 Spinal stenosis, cervical region; G82.50 Quadriplegia, unspecified; R00.1 Bradycardia, unspecified
CPT/HCPCS: 36415; 71020; 80053; 85025; 85610; 85730; 93005

== ENCOUNTER → 2016-11-23 | Outpatient (CLI) | payer OTHER, MEDICARE ==
[2016-11-23 10:40] LABS: HEMATOCRIT 37.1 % (39.0-51.0); MEAN CELL VOLUME 87.9 FL (80.0-100.0); MEAN CORPUSCULAR HEMOGLOBIN 30.4 PG (27.0-34.0); MEAN CORPUSCULAR HGB CONC 34.5 % (32.0-36.0); PLATELET COUNT 142 TH/MM3 (150-450); RED BLOOD COUNT 4.22 MIL/MM3 (4.50-5.90); RED CELL DISTRIBUTION WIDTH 14.5 % (11.6-17.2); REVIEW FLAG FINAL; WHITE BLOOD COUNT 4.9 TH/MM3 (4.0-11.0)
[2016-11-23 10:53] LABS: APTT (PATIENT) 29.8 SEC (24.3-30.1); INTERNATIONAL NORMALIZED RATIO 1.2 RATIO; PROTHROMBIN TIME - PATIENT 12.9 SEC (9.8-11.6)
[2016-11-23 11:34] LABS: ALKALINE PHOSPHATASE 119 U/L (45-117); ALT (GPT) 30 U/L (12-78); ANION GAP 7 MEQ/L (5-15); AST (GOT) 23 U/L (15-37); BICARBONATE 28.2 MEQ/L (21.0-32.0); BLOOD UREA NITROGEN 16 MG/DL (7-18); CHLORIDE 104 MEQ/L (98-107); GLOMERULAR FILTRATION RATE 80 ML/MIN (>89); GLUCOSE,FASTING 89 MG/DL (74-99); SODIUM (NA) 139 MEQ/L (136-145); TOTAL BILIRUBIN ADULT 0.6 MG/DL (0.2-1.0)
[2016-11-23 11:36] LABS: POTASSIUM 4.3 MEQ/L (3.5-5.1)
== END ==
LOC: CLAB 10:12
PROVIDERS: ATTEND Neurological Surgery
DX: Z79.01 Long term (current) use of anticoagulants (principal); Z01.812 Encounter for preprocedural laboratory examination
CPT/HCPCS: 36415; 80053; 85027; 85610; 85730